=== PATIENT | female | born 1955 | race Caucasian/White ===

== ENCOUNTER 2021-02-01 08:33 | Day surgery (SDC) | payer MEDICARE, BC ==
[2021-01-29 08:36] VITALS: BMI 29.0
[2021-02-01 09:28] VITALS: TEMP 97.9
[2021-02-01] MEDS ORDERED: LACTATED RINGERS 1,000 ML IV ONE (09:36)
[2021-02-01] MEDS ORDERED: PROPOFOL 10 MG/ML 20 ML VIAL IV ONE (10:26)
--- NOTE | 2021-02-01 10:36 | P.GSHP ---
History of Present Illness H&P Date: 02/01/21 Chief Complaint: Screening colonoscopy This a 65-year-old female who presents today for screening colonoscopy. Patient denies a significant GI complaints. Past Medical History Past Medical History: GERD/Reflux, Hypertension, Osteoarthritis (OA) Additional Past Medical History / Comment(s): tests positive for TB., IBS, back problems, c-diff (17 years ago) History of Any Multi-Drug Resistant Organisms: None Reported Past Surgical History: Appendectomy, Section, Hysterectomy, Tonsillectomy Additional Past Surgical History / Comment(s): x3, Past Anesthesia/Blood Transfusion Reactions: No Reported Reaction, Motion Sickness Past Psychological History: Anxiety Smoking Status: Never smoker Past Alcohol Use History: None Reported Past Drug Use History: None Reported - Past Family History Father Family Medical History: Cancer Additional Family Medical History / Comment(s): SKIN CANCER Mother Family Medical History: Cancer Additional Family Medical History / Comment(s): COLON CANCER Brother(s) Family Medical History: Cancer Additional Family Medical History / Comment(s): LUNG CANCER Sister(s) Family Medical History: Cancer Additional Family Medical History / Comment(s): COLON AND STOMACH CANCER Medications and Allergies Home Medications Medication Instructions Recorded Confirmed Type Cyanocobalamin (Vitamin B-12) 2,000 mcg PO DAILY 01/29/21 01/29/21 History [Vitamin B-12] Meclizine [Antivert] 12.5 mg PO DAILY PRN 01/29/21 01/29/21 History Omeprazole 40 mg PO DAILY 01/29/21 01/29/21 History Ondansetron [Zofran] 4 mg PO Q8HR PRN 01/29/21 01/29/21 History Sertraline [Zoloft] 100 mg PO HS 01/29/21 01/29/21 History Simvastatin [Zocor] 40 mg PO HS 01/29/21 01/29/21 History hydroCHLOROthiazide [Hydrodiuril] 12.5 mg PO DAILY 01/29/21 01/29/21 History lisinopriL [Zestril] 40 mg PO HS 01/29/21 01/29/21 History Allergies Allergy/AdvReac Type Severity Reaction Status Date / Time carisoprodol [From Soma] Allergy Unknown dizzy, Verified 02/01/21 09:23 passed out hydromorphone [From Dilaudid] Allergy Unknown Nausea & Verified 02/01/21 09:23 Vomiting Surgical - Exam Vital Signs Temp Pulse Resp BP Pulse Ox 97.9 F 83 17 139/66 96 02/01/21 09:28 02/01/21 09:28 02/01/21 09:28 02/01/21 09:28 02/01/21 09:28 - General well developed, well nourished, no distress - Eyes PERRL - ENT normal pinna - Neck no masses - Respiratory normal expansion - Cardiovascular Rhythm: regular - Abdomen Abdomen: soft, non tender Assessment and Plan Assessment: We'll perform screening colonoscopy
--- NOTE | 2021-02-01 10:49 | P.OP ---
Date of Procedure: 02/01/21 Preoperative Diagnosis: Screening colonoscopy Postoperative Diagnosis: Mild diverticulosis Procedure(s) Performed: Colonoscopy Anesthesia: MAC Surgeon: Ron Trotter Pathology: none sent Condition: stable Disposition: PACU Description of Procedure: The patient's placed on the endoscopy table in the lateral position. She received IV sedation. Digital rectal exam was performed which revealed no abnormalities. Flexible colonoscope was then placed patient anus and passed throughout the entire colon. The ileocecal valve was visualized. Cecum, ascending transverse colon appeared normal. In the descending; there is mild diverticular changes. Scope was brought back the rectum and this appeared no rmal. Scope was withdrawn for patient.
[2021-02-01 10:59] VITALS: RESP 16
[2021-02-01 11:14] VITALS: BP 116/74; PULSE 63
== END 2021-02-01 11:35 | disposition home or self-care (01) ==
LOC: ORWHC2ENDO 08:33
PROVIDERS: ATTEND Surgery
DX: Z12.11 Encounter for screening for malignant neoplasm of colon (principal); K57.90 Diverticulosis of intestine, part unspecified, without perforation or abscess without bleeding; F41.9 Anxiety disorder, unspecified; I10 Essential (primary) hypertension; K21.9 Gastro-esophageal reflux disease without esophagitis; K58.9 Irritable bowel syndrome, unspecified; F39 Unspecified mood [affective] disorder; M19.90 Unspecified osteoarthritis, unspecified site; Z80.1 Family history of malignant neoplasm of trachea, bronchus and lung; Z88.5 Allergy status to narcotic agent; Z90.49 Acquired absence of other specified parts of digestive tract; Z86.11 Personal history of tuberculosis
CPT/HCPCS: G0121; J2704

== ENCOUNTER → 2021-02-26 | Outpatient (CLI) | payer MEDICARE, BC ==
--- NOTE | 2021-03-19 11:12 | MM ---
Reason for exam: screening (asymptomatic). Last mammogram was performed 1 year and 6 months ago. Physical Findings: A clinical breast exam by your physician is recommended on an annual basis and results should be correlated with mammographic findings. MG 3D Screening Mammo W/Cad Bilateral CC and MLO view(s) were taken. Prior study comparison: September 06, 2019, mammogram, performed at [place]. June 30, 2018, mammogram, performed at [place]. There are scattered fibroglandular densities. No significant changes when compared with prior studies. ASSESSMENT: Benign, BI-RAD 2 RECOMMENDATION: Routine screening mammogram of both breasts in 1 year.
== END | disposition home or self-care (01) ==
LOC: RADMAMWWP 09:36
PROVIDERS: ATTEND Family Medicine
DX: Z12.31 Encounter for screening mammogram for malignant neoplasm of breast (principal)
CPT/HCPCS: 77063; 77067

== ENCOUNTER 2021-09-30 18:38 | Emergency (ER) | payer MEDICARE, BC ==
[2021-09-30 19:49] LABS: Basophils % (A) 0 %; Eosinophils # (A) 0.2 k/uL (0-0.7); Eosinophils % (A) 2 %; HCT 40.9 % (34.0-46.0); HGB 14.1 gm/dL (11.4-16.0); Lymphocytes # (A) 2.3 k/uL (1.0-4.8); Lymphocytes % (A) 31 %; MCH 30.2 pg (25.0-35.0); MCHC 34.6 g/dL (31.0-37.0); MCV 87.1 fL (80.0-100.0); Mean Platelet Volume 7.2; Monocytes # (A) 0.4 k/uL (0-1.0); Monocytes % (A) 5 %; Neutrophils # (A) 4.3 k/uL (1.3-7.7); Neutrophils % (A) 60 %; Platelet Count 245 k/uL (150-450); RBC 4.69 m/uL (3.80-5.40); RDW 12.8 % (11.5-15.5); WBC 7.2 k/uL (3.8-10.6)
[2021-09-30 20:00] LABS: Calcium 9.3 mg/dL (8.4-10.2); Potassium 3.3 mmol/L (3.5-5.1); Total Bilirubin 0.6 mg/dL (0.2-1.3); Total Protein 6.9 g/dL (6.3-8.2)
[2021-09-30 20:20] LABS: INR 0.9 (<1.2); Prothrombin Time 10.1 sec (9.0-12.0)
[2021-09-30] MEDS ORDERED: MECLIZINE 12.5 MG TAB PO STA ×2 (20:41→22:17)
[2021-09-30] MEDS ORDERED: PROCHLORPERAZINE INJ 10 MG/2 ML VIAL IVP STA (20:41)
[2021-09-30] MEDS ORDERED: SODIUM CHLORIDE 0.9% 1,000 ML IV STA (20:41)
[2021-09-30] MEDS ORDERED: MORPHINE SULFATE 4 MG/ML SYRINGE IVP STA (20:41)
[2021-09-30] MEDS ORDERED: POTASSIUM CHLORIDE ER 20 MEQ TAB.ER PO STA (20:46)
--- NOTE | 2021-09-30 21:40 | XR ---
EXAMINATION TYPE: XR Hip LT and AP Pelvis DATE OF EXAM: 09/30/2021 9:14 PM INDICATION: Patient age:Female; 65 years old; Reason for study: pain; COMPARISON: None. TECHNIQUE: The left hip was examined in the frontal and lateral projections and a AP pelvis. FINDINGS: No evidence of any acute osseous pathology, joint dislocation, or soft tissue swelling. Mul tilevel disc degeneration changes of the spine. IMPRESSION: No acute osseous pathology.
--- NOTE | 2021-09-30 22:03 | CT ---
EXAMINATION TYPE: CT brain cspine wo con CT DLP: 1338 mGycm, Automated exposure control for dose reduction was used. DATE OF EXAM: 09/30/2021 9:56 PM COMPARISON: None. CLINICAL INDICATION:Female, 65 years old with history of vertigo, recent fall, pain; VERTIGO/ FALL TECHNIQUE: Brain: Multiple axial CT images of the brain were obtained without IV contrast. Cspine: Axial CT images from the skull base to the inferior aspect of T2 we obtained without intraven ous contrast. Coronal and sagittal reformatted images were also reviewed. FINDINGS: Brain: Extra-axial spaces: No abnormal extra-axial fluid collections. Ventricular system: Within normal limits Cerebral parenchyma: No acute intraparenchymal hemorrhage or mass effect. The parikh-white junction is well differentiated. Cerebellum: Unremarkable. Mass effect: No evidence of midline shift. Intracranial vasculature: unremarkable Soft tissues: Normal. Calvarium/osseous structures: No depressed skull fracture. Paranasal sinuses and mastoid air cells: Clear. Visualized orbits: Orbital contents are intact. Cervical spine: Fracture: None. Osseous structures: Multilevel degenerative disc disease changes with endplate spurring and disc oste ophyte complex's. Vertebral alignment: Within normal limits. Spinal canal/Neural Foramina: No evidence of significant spinal canal narrowing. No evidence for sign ificant neural foraminal stenosis. Neck soft tissues: Prevertebral soft tissues are within normal limits. Other: The airway is patent. The lung apices are clear. IMPRESSION: 1. No acute intracranial process. 2. No evidence of cervical spine fracture. 3. Mild multilevel degenerative disc disease.
--- NOTE | 2021-09-30 22:19 | ED ---
General Adult HPI - General Chief complaint: Dizziness Stated complaint: vertigo Time Seen by Provider: 09/30/21 20:18 Source: patient, EMS, RN notes reviewed, old records reviewed Mode of arrival: EMS Limitations: no limitations - History of Present Illness Initial comments: Patient is a 65-year-old female with past medical history remarkable for verti go, hypertension, GERD who recently had a fall and was evaluated in outpatient hospital when she was discharged home with the weekend the concussion, presents for vertigo. Patient states that since her fall, is been having her normal vertigo symptoms. States she is also having some neck pain as well as left hip pain. She believes that they obtain imaging of her head, neck, hip at the other hospital, but cannot recall. Is not on blood thinners. Denies losing consciousness. Patient states she slipped on black ice and landed on her back. She is ambulatory, except she states is difficult with vertigo. Her vertigo has not recurred in quite some time, and she had which she believes may have been medication treated at home. Believes it was Antivert. His no other acute complaints at this time. Denies any nausea, vomiting. Endorses left hip pain, neck pain. Endorses a mild headache. Denies any chest pain or shortness breath. Presents primarily over concern for vertigo as well as possible concussion. - Related Data Home Medications Medication Instructions Recorded Confirmed Sertraline [Zoloft] 100 mg PO HS 01/29/21 09/30/21 Simvastatin [Zocor] 40 mg PO HS 01/29/21 09/30/21 hydroCHLOROthiazide [Hydrodiuril] 12.5 mg PO HS 01/29/21 09/30/21 lisinopriL [Zestril] 40 mg PO HS 01/29/21 09/30/21 Ergocalciferol (Vitamin D2) 1,250 mcg PO WE 09/30/21 09/30/21 [Drisdol (50,000 Iu)] Loratadine [Alavert] 10 mg PO HS 09/30/21 09/30/21 Loratadine-Pseudoeph 10-240 mg 1 tab PO DAILY PRN 09/30/21 09/30/21 [Claritin-D 24 Hour] Meclizine HCl 12.5 mg PO TID PRN 09/30/21 09/30/21 Omeprazole [PriLOSEC] 20 mg PO AC-BID 09/30/21 09/30/21 Ondansetron Odt [Zofran Odt] 4 mg PO Q8HR PRN 09/30/21 09/30/21 hydrOXYzine HCL [Atarax] 10 mg PO TID PRN 09/30/21 09/30/21 Previous Rx's Medication Instructions Recorded Meclizine [Antivert] 25 mg PO TID PRN 14 Days #42 tab 09/30/21 Methocarbamol [Robaxin-750] 750 mg PO BID PRN 7 Days #14 tablet 09/30/21 Allergies Allergy/AdvReac Type Severity Reaction Status Date / Time carisoprodol [From Soma] Allergy Unknown dizzy, Verified 09/30/21 21:21 passed out hydromorphone [From Dilaudid] Allergy Unknown Nausea & Verified 09/30/21 21:21 Vomiting Review of Systems ROS Statement: Those systems with pertinent positive or pertinent negative responses have been documented in the HPI. Review of Systems: CONST: Denies fever EYES: Denies blurry vision ENT: Denies nasal congestion C/V: Denies Chest pain RESP: Denies shortness of breath GI: Denies abdominal pain : Denies dysuria SKIN: Denies rash. MSK: Endorses left hip pain NEURO: Endorses headache, vertigo ROS Other: All systems not noted in ROS Statement are negative. Past Medical History Past Medical History: GERD/Reflux, Hypertension, Osteoarthritis (OA) Additional Past Medical History / Comment(s): tests positive for TB., IBS, back problems, c-diff (17 years ago) History of Any Multi-Drug Resistant Organisms: None Reported Past Surgical History: Appendectomy, Section, Hysterectomy, Tonsillectomy Additional Past Surgical History / Comment(s): x3, Past Anesthesia/Blood Transfusion Reactions: No Reported Reaction, Motion Sickness Past Psychological History: Anxiety Smoking Status: Never smoker Past Alcohol Use History: None Reported Past Drug Use History: None Reported - Past Family History Father Family Medical History: Cancer Additional Family Medical History / Comment(s): SKIN CANCER Mother Family Medical History: Cancer Additional Family Medical History / Comment(s): COLON CANCER Brother(s) Family Medical History: Cancer Additional Family Medical History / Comment(s): LUNG CANCER Sister(s) Family Medical History: Cancer Additional Family Medical History / Comment(s): COLON AND STOMACH CANCER General Exam - General Exam Comments Initial Comments: General: Appears in no distress secondary to pain as well as vertigo. HEAD: Normal with no signs of head trauma. Negative Tony sign, negative raccoon eyes. EYES: PERRLA, EOMI, conjunctiva normal, no discharge. Pupils are 3 mm and equal bilaterally. ENT: Hearing grossly intact, normal oropharynx. RESPIRATORY: Clear breath sounds bilaterally. No wheezes, rales, or rhonchi. C/V: Regular rate and rhythm. S1 and S2 auscultated, no edema, peripheral pulses 2+ and intact throughout ABD: Abd is soft, nontender, nondistended EXT: Normal range of motion, no obvious deformity. Patient does have some mild midline cervical but primarily left paraspinal muscle tenderness over the cervical spine. No thoracic or lumbar spine tenderness to palpation. Mild ten derness to palpation over the lateral aspect of the left hip and femur. Pelvis is stable. SKIN: No rashes or lesions observed on exposed skin. NEURO: Alert and oriented 4. No focal sensory strength deficits. NIH is 0. GCS 15. Cranial nerves II through XII are intact. Limitations: no limitations Course Vital Signs 09/30/21 18:45 Temperature 98.5 F Pulse Rate 87 Respiratory 18 Rate Blood Pressure 150/92 O2 Sat by Pulse 97 Oximetry Medical Decision Making - Medical Decision Making Based on patient's presentation and physical exam, she is likely experiencing symptoms from her concussion diagnosed a few days ago after a fall, however c annot rule out worsening troponin process, she is having worsening vertigo as well as headache. She says complaining of worsening left hip pain. Due to the uncertainty surrounding imaging the other day, we will repeat imaging. Basic laboratory studies were already ordered by triage including an EKG. Patient was in agreement this plan. She'll be symptomatically treated with meclizine, Compazine, as well as a 1 L fluid bolus. EKG showed no signs of acute ischemia. Laboratory studies are remarkable for a hypokalemia at 3.3 which is replenished. Troponin is negative. Remainder the labs are unremarkable. Revealed no acute process. CT head and C-spine revealed no acute intracranial process. No acute cervical spinal cord injury. There is degenerative disc disease. On reevaluation, patient states she is improved. She states the vertigo has resolved. I did discuss that with it is safe for her to be discharged home. We reviewed the negative workup. We discussed concussion symptoms. Strict return precautions were discussed. She was in agreement this plan. She'll be given a prescription for Antivert as well as Robaxin for pain. I will provide the patient with a prescription for Antivert, Robaxin. I instructed the patient to follow up with their PCP in the next 3 days. I explained that the patient should return to the emergency department if they experience any worsening symptoms. Strict return precautions were discussed with the patient. The patient expressed understanding of these instructions. I answered all questions that the patient had. The patient was discharged home in good condition with their prescriptions and follow up information. - Lab Data Result diagrams: 09/30/21 19:39 09/30/21 19:39 Lab Results 09/30/21 09/30/21 09/30/21 Range/Units 19:39 19:39 19:39 WBC 7.2 (3.8-10.6) k/uL RBC 4.69 (3.80-5.40) m/uL Hgb 14.1 (11.4-16.0) gm/dL Hct 40.9 (34.0-46.0) % MCV 87.1 (80.0-100.0) fL MCH 30.2 (25.0-35.0) pg MCHC 34.6 (31.0-37.0) g/dL RDW 12.8 (11.5-15.5) % Plt Count 245 (150-450) k/uL MPV 7.2 Neutrophils % 60 % Lymphocytes % 31 % Monocytes % 5 % Eosinophils % 2 % Basophils % 0 % Neutrophils # 4.3 (1.3-7.7) k/uL Lymphocytes # 2.3 (1.0-4.8) k/uL Monocytes # 0.4 (0-1.0) k/uL Eosinophils # 0.2 (0-0.7) k/uL Basophils # 0.0 (0-0.2) k/uL PT 10.1 (9.0-12.0) sec INR 0.9 (<1.2) APTT 22.0 (22.0-30.0) sec Sodium 138 (137-145) mmol/L Potassium 3.3 L (3.5-5.1) mmol/L Chloride 104 (98-107) mmol/L Carbon Dioxide 27 (22-30) mmol/L Anion Gap 7 mmol/L BUN 16 (7-17) mg/dL Creatinine 0.85 (0.52-1.04) mg/dL Est GFR (CKD-EPI)AfAm 82 (>60 ml/min/1.73 sqM) Est GFR (CKD-EPI)NonAf 71 (>60 ml/min/1.73 sqM) Glucose 141 H (74-99) mg/dL Calcium 9.3 (8.4-10.2) mg/dL Total Bilirubin 0.6 (0.2-1.3) mg/dL AST 22 (14-36) U/L ALT 19 (4-34) U/L Alkaline Phosphatase 76 (38-126) U/L Troponin I (0.000-0.034) ng/mL Total Protein 6.9 (6.3-8.2) g/dL Albumin 4.0 (3.5-5.0) g/dL 09/30/21 Range/Units 19:39 WBC (3.8-10.6) k/uL RBC (3.80-5.40) m/uL Hgb (11.4-16.0) gm/dL Hct (34.0-46.0) % MCV (80.0-100.0) fL MCH (25.0-35.0) pg MCHC (31.0-37.0) g/dL RDW (11.5-15.5) % Plt Count (150-450) k/uL MPV Neutrophils % % Lymphocytes % % Monocytes % % Eosinophils % % Basophils % % Neutrophils # (1.3-7.7) k/uL Lymphocytes # (1.0-4.8) k/uL Monocytes # (0-1.0) k/uL Eosinophils # (0-0.7) k/uL Basophils # (0-0.2) k/uL PT (9.0-12.0) sec INR (<1.2) APTT (22.0-30.0) sec Sodium (137-145) mmol/L Potassium (3.5-5.1) mmol/L Chloride (98-107) mmol/L Carbon Dioxide (22-30) mmol/L Anion Gap mmol/L BUN (7-17) mg/dL Creatinine (0.52-1.04) mg/dL Est GFR (CKD-EPI)AfAm (>60 ml/min/1.73 sqM) Est GFR (CKD-EPI)NonAf (>60 ml/min/1.73 sqM) Glucose (74-99) mg/dL Calcium (8.4-10.2) mg/dL Total Bilirubin (0.2-1.3) mg/dL AST (14-36) U/L ALT (4-34) U/L Alkaline Phosphatase (38-126) U/L Troponin I <0.012 (0.000-0.034) ng/mL Total Protein (6.3-8.2) g/dL Albumin (3.5-5.0) g/dL Disposition Clinical Impression: Vertigo, Concussion, Musculoskeletal strain Disposition: HOME SELF-CARE Condition: Good Instructions (If sedation given, give patient instructions): Vertigo (ED) Prescriptions: Meclizine [Antivert] 25 mg PO TID PRN 14 Days #42 tab PRN Reason: Vertigo Methocarbamol [Robaxin-750] 750 mg PO BID PRN 7 Days #14 tablet PRN Reason: Pain Is patient prescribed a controlled substance at d/c from ED?: No Referrals: Sami Cuellar MD [Primary Care Provider] - 1-2 days
[2021-09-30 22:41] VITALS: RESP 16
[2021-09-30 22:42] VITALS: BP 120/62; PULSE 82; TEMP 97.9
== END 2021-09-30 22:41 | disposition home or self-care (01) ==
LOC: EC 18:38
DX: S06.0X9A Concussion with loss of consciousness of unspecified duration, initial encounter (principal); S16.1XXA Strain of muscle, fascia and tendon at neck level, initial encounter; S76.012A Strain of muscle, fascia and tendon of left hip, initial encounter; R42 Dizziness and giddiness; I10 Essential (primary) hypertension; K21.9 Gastro-esophageal reflux disease without esophagitis; M19.90 Unspecified osteoarthritis, unspecified site; F41.9 Anxiety disorder, unspecified; Z79.899 Other long term (current) drug therapy; W00.0XXA Fall on same level due to ice and snow, initial encounter
CPT/HCPCS: 36415; 80053; 84484; 85025; 85610; 85730; 73502; 72125; 70450; 99285; 96374; 96375; 96361 ×2; J2270; J0780

== ENCOUNTER → 2022-05-27 | Outpatient (CLI) | payer MEDICARE, BC ==
--- NOTE | 2022-05-28 18:09 | MM ---
Reason for Exam: Screening (asymptomatic). Last mammogram was performed 1 year(s) and 3 month(s) ago. Patient History: Menarche at age 12. First Full-Term at age 15. Right ovary removed at age 24. Hysterectomy at age 24. Postmenopausal. Risk Values: Jhoana 5 year model risk: 1.1%. NCI Lifetime model risk: 3.7%. Prior Study Comparison: 06/30/2018 Screening Mammogram, [place]. 09/06/2019 Screening Mammogram, [place]. 02/26/2021 Bilateral Screening Mammogram, [facility]. Tissue Density: There are scattered fibroglandular densities. Findings: Analyzed By CAD. There is no suspicious group of microcalcifications or new suspicious mass in either breast. Overall Assessment: Negative, BI-RAD 1 Management: Screening Mammogram of both breasts in 1 year. 1. Patient should continue monthly self breast exams. 2. A clinical breast exam by your physician is recommended on an annual basis. 3. This exam should not preclude additional follow-up of suspicious palpable abnormalities. Electronically signed and approved by: Ellie Acevedo M.D. Radiologist
== END | disposition home or self-care (01) ==
LOC: RADMAMWWP 15:34
PROVIDERS: ATTEND Family Medicine
DX: Z12.31 Encounter for screening mammogram for malignant neoplasm of breast (principal); Z78.0 Asymptomatic menopausal state; Z90.721 Acquired absence of ovaries, unilateral
CPT/HCPCS: 77063; 77067

== ENCOUNTER → 2024-04-27 | Outpatient (CLI) | payer MEDICARE, BC ==
--- NOTE | 2024-04-28 14:16 | MM ---
Reason for Exam: Screening (asymptomatic). Last mammogram was performed 1 year(s) and 11 month(s) ago. Patient History: Menarche at age 12. First Full-Term at age 15. Left ovary removed at age 32. Right ovary removed at age 24. Hysterectomy at age 24. Postmenopausal. Risk Values: Jhoana 5 year model risk: 1.1%. NCI Lifetime model risk: 3.3%. Prior Study Comparison: 09/06/2019 Screening Mammogram, [place]. 02/26/2021 Bilateral Screening Mammogram, [facility]. 05/27/2022 Bilateral MG 3D screening mammo w/cad, [facility]. Tissue Density: There are scattered areas of fibroglandular density. Findings: Analyzed By CAD. Right breast: There is no suspicious group of microcalcifications or new suspicious mass. Left breast: There is no suspicious group of microcalcifications or new suspicious mass. Overall Assessment: Negative, BI-RAD 1 Management: Screening Mammogram of both breasts in [address] [facility] will attempt to contact patient to return for supplemental views and ultrasound if indicated. Patient should continue monthly self-breast exams. A clinical breast exam by your physician is recommended on an annual basis. This exam should not preclude additional follow-up of suspicious palpable abnormalities. Note on Jhoana scores and lifetime risk: 1. A Jhoana score greater than 3% is considered moderate risk. If this is the case, consider specialist referral to assess eligibility for a risk reducing agent. 2. If overall lifetime risk for the development of breast cancer is 20% or higher, the patient may qualify for future screening with alternating mammogram and breast MRI. [facility], , 04/28/2024 2:01 PM. Electronically signed and approved by: Jose De Jesus Caceres DO
== END | disposition home or self-care (01) ==
LOC: RADMAMWWP 13:31
PROVIDERS: ATTEND Family Medicine
CPT/HCPCS: 77063; 77067